=== PATIENT | female | born 1980 | race African-American/Black ===

== ENCOUNTER 2016-06-27 17:27 | Emergency (ER) | payer MEDICAID, OTHER ==
[~2016-06-27] VITALS: Ht 170.2 cm; Wt 89.0 kg
[2016-06-27] MEDS ORDERED: METHYLPREDNISOLONE SOD SUCC 125 MG/2 ML VIAL IV ONE (18:00)
[2016-06-27] MEDS ORDERED: DIPHENHYDRAMINE 50MG/ML VIAL IV ONE (18:00)
[2016-06-27] MEDS ORDERED: EPINEPHRINE 1:1000 1 MG/ML AMP INJ ONE (18:00)
[2016-06-27] MEDS ORDERED: KETOROLAC 30MG/ML VIAL IV ONE (19:45)
[2016-06-27 22:40] VITALS: BP 112/70
== END 2016-06-27 22:51 | disposition home or self-care (01) ==
LOC: ER 19:04
DX: T78.40XA Allergy, unspecified, initial encounter (principal); M54.9 Dorsalgia, unspecified; Z98.890 Other specified postprocedural states
CPT/HCPCS: 96374; 96375; 99284; J0171; J1200; J1885; J2930

== ENCOUNTER 2019-04-14 18:43 | Emergency (ER) | payer OTHER ==
[~2019-04-14] VITALS: Ht 165.1 cm; Wt 86.5 kg
[2019-04-14 19:49] VITALS: BP 118/60
== END 2019-04-14 22:00 | disposition left against medical advice (07) ==
LOC: ER 18:43
DX: Z53.21 Procedure and treatment not carried out due to patient leaving prior to being seen by health care provider (principal)

== ENCOUNTER 2020-03-21 17:50 | Emergency (ER) | payer OTHER ==
[~2020-03-21] VITALS: Ht 165.1 cm; Wt 68.0 kg
[2020-03-21 19:59] LABS: HEMATOCRIT. 21.4 % (36.0-48.0); MEAN CORPUSCULAR VOLUME 71.2 fL (81.0-99.0); MEAN PLATELET VOLUME 8.6 fl (7.4-10.4); PLATELET 192 x1000/uL (130-400); RED BLOOD CELL COUNT 3.01 mill/uL (4.2-5.4)
[2020-03-21 20:04] LABS: CHLORIDE 109 mEq/L (98-107); HEMOGLOBIN. 5.4 g/dL (12.0-16.0)
[2020-03-21 20:12] LABS: HCG SCREEN NEGATIVE
[2020-03-21 20:21] LABS: PLATELET ESTIMATE NORMAL
[2020-03-21] MEDS ORDERED: IOHEXOL-300 100 ML BOTTLE ONE (23:29)
[2020-03-22] MEDS ORDERED: SODIUM CHLORIDE 0.9% 1,000 ML IV ONE (00:15)
[2020-03-22] MEDS ORDERED: ACETAMINOPHEN WITH CODEINE 300/30MG TABLET PO ONE (00:15)
[2020-03-22 01:30] VITALS: BP 118/57
== END 2020-03-22 01:36 | disposition left against medical advice (07) ==
LOC: ER 17:50 → CANBEDREQ 03-22 04:29
DX: C85.90 Non-Hodgkin lymphoma, unspecified, unspecified site (principal); D63.0 Anemia in neoplastic disease; Z98.890 Other specified postprocedural states; Z91.018 Allergy to other foods
CPT/HCPCS: 36415; 70491; 80053; 81025; 84703; 85025; 86850; 86870; 86900; 86901; 93005; 99285; J7030; Q9967; 86920